=== PATIENT | male | born 1980 | race Caucasian/White ===

== ENCOUNTER 2019-10-20 11:33 | Emergency (ER) | payer BC ==
[2019-10-20] MEDS ORDERED: PROPARACAINE 0.5% OPHTH DROPS 15 ML BTL BOTH EYES STA (11:56)
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
[2019-10-20] MEDS ORDERED: SODIUM CHLORIDE 0.9% 1,000 ML IV ONE (12:51)
[2019-10-20] MEDS ORDERED: MORPHINE SULFATE 4 MG/ML SYRINGE IVP STA (13:00)
[2019-10-20] MEDS ORDERED: SODIUM CHLORIDE 0.9% 1,000 ML IV SCH (13:00)
[2019-10-20 13:05] VITALS: TEMP 98
[2019-10-20 13:05] LABS: Basophils % (A) 0 %; Eosinophils # (A) 0.2 k/uL (0-0.7); Eosinophils % (A) 1 %; HGB 16.4 gm/dL (13.0-17.5); Lymphocytes # (A) 2.6 k/uL (1.0-4.8); Lymphocytes % (A) 16 %; MCH 31.2 pg (25.0-35.0); MCHC 33.4 g/dL (31.0-37.0); MCV 93.4 fL (80.0-100.0); Mean Platelet Volume 7.2; Monocytes % (A) 6 %; Neutrophils # (A) 12.4 k/uL (1.3-7.7); Neutrophils % (A) 75 %; Platelet Count 273 k/uL (150-450); RBC 5.25 m/uL (4.30-5.90); RDW 13.2 % (11.5-15.5); WBC 16.5 k/uL (3.8-10.6)
[2019-10-20 13:19] LABS: ALT 42 U/L (4-49); AST 45 U/L (17-59); African American GFR (CKD) >90 (>60 ml/min/1.73 sqM); Albumin 4.8 g/dL (3.5-5.0); Alkaline Phosphatase 70 U/L (38-126); Anion Gap 12 mmol/L; Blood Urea Nitrogen 14 mg/dL (9-20); Calcium 9.3 mg/dL (8.4-10.2); Carbon Dioxide 24 mmol/L (22-30); Chloride 107 mmol/L (98-107); Glucose 87 mg/dL (74-99); Non-African American GFR(CKD) >90 (>60 ml/min/1.73 sqM); Potassium 4.4 mmol/L (3.5-5.1); Sodium 143 mmol/L (137-145); Total Bilirubin 0.9 mg/dL (0.2-1.3); Total Protein 7.7 g/dL (6.3-8.2)
[2019-10-20 13:20] LABS: Partial Thromboplastin Time 27.8 sec (22.0-30.0); Prothrombin Time 10.3 sec (9.0-12.0)
[2019-10-20 13:45] VITALS: BP 141/79; PULSE 110; RESP 15
== END 2019-10-20 13:30 ==
LOC: EC 11:33
DX: S06.6X9A Traumatic subarachnoid hemorrhage with loss of consciousness of unspecified duration, initial encounter (principal); S02.2XXA Fracture of nasal bones, initial encounter for closed fracture; S02.40CA Maxillary fracture, right side, initial encounter for closed fracture; S00.12XA Contusion of left eyelid and periocular area, initial encounter; F17.200 Nicotine dependence, unspecified, uncomplicated; Y04.0XXA Assault by unarmed brawl or fight, initial encounter; Y92.511 Restaurant or cafe as the place of occurrence of the external cause
CPT/HCPCS: 36415; 80053; 85025; 85610; 85730; 71046; 72125; 70486; 70450; 99285; 96374; 96361; J2270

== ENCOUNTER 2019-11-03 16:38 | Emergency (ER) | payer BC ==
[2019-11-03 16:47] VITALS: TEMP 98
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
[2019-11-03] MEDS ORDERED: MAG HYDROX/AL HYDROX/SIMETH 30 ML, HYOSCYAMINE ELIXIR 10 ML, LIDOCAINE VISCOUS 2% 10 ML PO STA ×3 (18:03)
[2019-11-03 18:12] VITALS: RESP 20
[2019-11-03 18:13] VITALS: BP 140/103; PULSE 84
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
== END 2019-11-03 18:36 | disposition home or self-care (01) ==
LOC: EC 16:38
DX: J02.9 Acute pharyngitis, unspecified (principal); F17.200 Nicotine dependence, unspecified, uncomplicated
CPT/HCPCS: 70360; 87081; 87430; 99283